=== PATIENT | male | born 1995 | race Caucasian/White ===

== ENCOUNTER 2017-09-25 21:56 | Emergency (ER) | payer OTHER ==
[2017-09-25] MEDS ORDERED: METHYLPREDNISOLONE INJ 125 MG/2 ML SDV ONE (22:06)
[2017-09-25] MEDS ORDERED: EPINEPHRINE INJ/PF 1 MG/1 ML AMPULE ONE (22:06)
[2017-09-25] MEDS ORDERED: FAMOTIDINE INJ/PF 20 MG/2 ML SDV IV ONE (22:08)
[2017-09-25] MEDS ORDERED: EPINEPHRINE INJ/PF 1 MG/1 ML AMPULE IM ONE (22:08)
[2017-09-25] MEDS ORDERED: METHYLPREDNISOLONE INJ 125 MG/2 ML SDV IV ONE (22:08)
[2017-09-25] MEDS ORDERED: DIPHENHYDRAMINE HCL 50 MG/ML VIAL IV ONE (22:08)
--- NOTE | 2017-09-26 00:32 | ER Document Report ---
ED Allergic Reaction - General Chief Complaint: Allergic Reaction Stated Complaint: POSSIBLE ALLERGIC REACTION Time Seen by Provider: 09/25/17 22:08 Notes: Patient is a 21-year-old male who comes emergency department for chief complaint of allergic reaction. He states he feels like it is difficult to breathe and swallow, he has also started to have a runny nose and some general itchiness. He states symptoms started soon after he ate a cookie, he states he checked and found have a recent event, he is allergic to peanuts. He did not take any medications prior to coming in. 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 TRAVEL OUTSIDE OF THE [place] IN LAST 30 DAYS: No - Related Data Allergies/Adverse Reactions: peanut Allergy (Verified 09/25/17 22:02) Past Medical History - General Information source: Patient - Social History Smoking Status: Current Some Day Smoker Chew tobacco use (# tins/day): No Frequency of alcohol use: None Drug Abuse: None Lives with: Family Family History: Reviewed & Not Pertinent Patient has suicidal ideation: No Patient has homicidal ideation: No - Medical History Medical History: Negative Renal/ Medical History: Denies: Hx Peritoneal Dialysis Surgical Hx: Negative - Immunizations Hx Diphtheria, Pertussis, Tetanus Vaccination: Yes Review of Systems - Review of Systems Constitutional: No symptoms reported EENT: See HPI Cardiovascular: No symptoms reported Respiratory: See HPI Gastrointestinal: No symptoms reported Genitourinary: No symptoms reported Male Genitourinary: No symptoms reported Musculoskeletal: No symptoms reported Skin: No symptoms reported Hematologic/Lymphatic: No symptoms reported Neurological/Psychological: No symptoms reported Physical Exam - Vital signs Vitals: Temp Pulse Resp BP Pulse Ox 98.7 F 103 H 16 142/104 H 95 09/25/17 22:03 09/25/17 22:03 09/25/17 22:03 09/25/17 22:03 09/25/17 22:03 - Notes Notes: GENERAL: Alert, interacts well. Mild tachypnea HEAD: Normocephalic, atraumatic. EYES: Pupils equal, round, and reactive to light. Extraocular movements intact. Puffiness noted over the cheeks and lower eyelids bilaterally ENT: Minimal posterior pharyngeal soft tissue swelling, airway is still patent, tongue is unremarkable NECK: Full range of motion. Supple. Trachea midline. LUNGS: Expiratory wheezes throughout, mild tachypnea, borderline respiratory distress HEART: Regular rate and rhythm. No murmur ABDOMEN: Soft, non-tender. Non-distended. Bowel sounds present in all 4 quadrants. EXTREMITIES: Moves all 4 extremities spontaneously. No edema, normal radial and dorsalis pedis pulses bilaterally. No cyanosis. BACK: no cervical, thoracic, lumbar midline tenderness. No saddle anesthesia, normal distal neurovascular exam. NEUROLOGICAL: Alert and oriented x3. Normal speech. [cranial nerves II through XII grossly intact]. PSYCH: Slightly anxious SKIN: Flushed Course - Re-evaluation Re-evalutation: Initial presentation consistent with anaphylaxis, patient has puffiness of both cheeks and eyelids, minimal soft tissue swelling of the posterior pharynx, he has wheezing noted on examination. He is slightly flushed. Patient was immediately given epinephrine, Benadryl, Pepcid, Solu-Medrol. Placed on monitor. After 2 minutes symptoms significantly improved, after monitoring symptoms completely resolved. Patient reevaluated tomorrow times. No return symptoms over the course of 2-1/ 2 hours. Patient is requesting to leave. He states that his family has EpiPen' s at home that he will use, he states he will take [id number] antihistamines, he declines prednisone, he states that if he has return symptoms he will take epinephrine and return immediately. Discharged with return precautions, stable at time of discharge. - Vital Signs Vital signs: Temp Pulse Resp BP Pulse Ox 98.1 F 103 H 16 115/69 97 09/26/17 00:43 09/25/17 22:03 09/26/17 00:42 09/26/17 00:42 09/26/17 00:42 Discharge - Discharge Clinical Impression: Anaphylaxis Qualifiers: Encounter type: initial encounter Qualified Code(s): T78.2XXA - Anaphylactic shock, unspecified, initial encounter Condition: Stable Disposition: HOME, SELF-CARE Additional Instructions: Your examination was consistent with anaphylaxis, probably from the peanut allergy. Recommendation is to take [id number] antihistamine such as cetirizine and famotidine daily for at least 1 week. If symptoms occur again take epinephrine pen and return immediately to the emergency department. Return for any other concerning symptoms.
[2017-09-26 00:46] VITALS: BP 115/69
== END 2017-09-26 00:46 | disposition home or self-care (01) ==
LOC: ER 21:56
DX: T78.2XXA Anaphylactic shock, unspecified, initial encounter (principal); R13.10 Dysphagia, unspecified; L29.9 Pruritus, unspecified; R06.2 Wheezing; R23.2 Flushing; R06.82 Tachypnea, not elsewhere classified; F17.200 Nicotine dependence, unspecified, uncomplicated; Z91.010 Allergy to peanuts
CPT/HCPCS: 99283; 96372; 96374; 96375; J1200; J0171; J2930; S0028